=== PATIENT | female | born 1950 | race Caucasian/White ===

== ENCOUNTER 2016-11-09 10:04 | Emergency (ER) | payer OTHER ==
--- NOTE | ~2016-11-09 | CT52 ---
[facility] A Service of [facility] RADIOLOGY TEXT RESULTS PATIENT: DAYANARA REICH LOCATION: [facility] [place] : 54 UNIT #: [id number] AGE: [address]: David Coello MD SEX: F ORDER DR: [id number] [address] [address] [id number] E MR#: [id number] #: [id number] NAME: DAYANARA REICH : 1950 SEX: F STUDY DATE/TIME: 11/09/2016 10:50 UNIT: SED ROOM: STUDY DESCRIPTION: CT Cervical Spine Wo Cont Attending Physician: David Coello M.D. Ordering Physician: David Coello M.D. Primary Care Physician: Juanito Hackett M.D. MEDICAL IMAGING REPORT This report is preliminary unless electronic signature is present. EXAM CT cervical spine without contrast DATE 11/09/2016 HISTORY Posterior headache at the base of the skull for 1 week. No known injury. COPD. Hypertension. COMPARISON None. PROCEDURE 2 mm noncontrast axial images through the cervical spine. Sagittal and coronal reformatted images were obtained. This CT exam was performed with one or more of the following radiation dose reduction techniques: Automatic exposure control, adjustment of mA and/or kV according to patient size, and iterative reconstruction. FINDINGS No acute cervical spine fracture is seen. Craniocervical junction is intact. There is degenerative change of the anterior C1 ring-C2 dens articulation. There is a moderately-advanced diminished disc height at C5-6 with mild anterior and posterior osteophyte formation. There is kgbp-hj-uoaoggco diminished disc height at C6-7 with mild anterior and posterior osteophyte formation. There is 2 mm anterolisthesis C3 upon C4, and approximately 1 mm anterolisthesis of C4 upon C5, nonspecific, but thought to be related to facet arthropathy at those levels. There is mild kyphotic curvature of the cervical spine centered at C4-5. [facility] A Service of [facility] RADIOLOGY TEXT RESULTS PATIENT: DAYANARA REICH LOCATION: [facility] #: [id number] : 54 UNIT #: [id number] AGE: [address]: David Coello MD SEX: F ORDER DR: At C2-3, there is severe right, moderate left facet arthropathy, without significant canal stenosis, and probable mild bilateral neural foraminal narrowing. At C3-4, grade 1 anterolisthesis is noted C3 upon C4 resulting in a pseudo bulge. There is bilateral uncovertebral spurring. Moderate right greater than left facet arthropathy is present. This results in mild canal stenosis. There is moderate to severe right neural foraminal narrowing, moderate left neural foraminal narrowing. At C4-5, there is advanced left facet arthropathy and there is left side uncovertebral spurring. Only borderline canal stenosis. Severe left, glaf-ti-lnowfwkz right neural foraminal narrowing. At C5-6, there is left side uncovertebral spurring with mild posterior disc osteophyte formation, and mild left greater than right facet arthropathy. There is cjdlftjh-jf-bjsjsl left neural foraminal narrowing, mild right neural foramen foraminal narrowing, and borderline canal stenosis. At C6-7, no significant disc bulge, canal, or foraminal stenosis At C7-T1, no significant disc bulge, canal, or foraminal stenosis. Mild left facet arthropathy. Emphysematous changes in lung apices. Paraspinal soft tissues, otherwise, appear within normal limits. IMPRESSION 1. Multilevel degenerative changes in the cervical spine as described in detail in the report, with probable mild canal stenosis at C3-4, borderline canal stenosis at C4-5 and C5-6. Multilevel neural foraminal narrowing, thought to be greatest on the right at C2-3, on the left at C4-5, and left greater than right at C5-6. 2. Biapical emphysema. 3. Grade 1 anterolisthesis C3 upon C4 and C4 upon C5, nonspecific, but thought to be related to advanced facet arthropathy at those levels. Dictated by... Adriana Hernandez M.D. THIS IS AN ELECTRONICALLY VERIFIED REPORT Adriana Hernandez M.D. at 11/10/2016 8:46 AM NICOLAS/meenakshi TD: 11/09/2016 13:48 JOB #: [id number] [facility] A Service of [facility] RADIOLOGY TEXT RESULTS PATIENT: DAYANARA REICH LOCATION: SED : 54 UNIT #: [id number] AGE: [address]: David Coello MD SEX: F ORDER DR: MEDICAL IMAGING REPORT Page 1 of 1
--- NOTE | ~2016-11-09 | CT71 ---
[facility] A Service of [facility] RADIOLOGY TEXT RESULTS PATIENT: DAYANARA REICH LOCATION: SED : 54 UNIT #: [id number] AGE: [address]: David Coello MD SEX: F ORDER DR: [id number] [place] [id number] E MR#: [id number] Acc #: [id number] NAME: DAYANARA REICH. : 1950 SEX: F STUDY DATE/TIME: 11/09/2016 11:20 UNIT: SED ROOM: STUDY DESCRIPTION: CT Head Wo Contrast Attending Physician: David Coello M.D. Ordering Physician: David Coello M.D. Primary Care Physician: Juanito Hackett M.D. MEDICAL IMAGING REPORT This report is preliminary unless electronic signature is present. EXAM CT head without contrast DATE 11/09/2016 HISTORY Posterior headache for 1 week, greatest at the base of the skull. No documented injury. Additional history of hypertension and COPD. COMPARISON CT head without contrast 06/07/2015. TECHNIQUE This CT exam was performed with one or more of the following radiation dose reduction techniques: Automatic exposure control, adjustment of mA and/or kV according to patient size, and iterative reconstruction. FINDINGS No acute intracranial hemorrhage, mass lesion, mass effect, or midline shift is seen and there is no CT evidence of acute or evolving infarct. Major paranasal sinuses and mastoid air cells appear clear. Calvarium is within normal limits. IMPRESSION No acute intracranial findings. No significant change compared to 06/07/2015. Dictated by... Adriana Hernandez M.D. [facility] A Service [facility] RADIOLOGY TEXT RESULTS PATIENT: DAYANARA REICH LOCATION: SED : 54 UNIT #: [id number] AGE: [address]: David Coello MD SEX: F ORDER DR: THIS IS AN ELECTRONICALLY VERIFIED REPORT Adriana Hernandez M.D. at 11/10/2016 8:46 AM Sherrie TD: 11/09/2016 13:37 JOB #: [id number] MEDICAL IMAGING REPORT Page 1 of 1
[~2016-11-09 10:04] MED LIST: ALBUTEROL17 G1 IH; ALBUTEROL17 GM INH; ASPIRIN ENTERI325 M1 PO; ASPIRIN81 M2 PO; ASPIRIN81 MG PO; BACTRIM DS TABL1 TA1 PO; BENZONATATE PO; CELEXA20 MG PO; COREG3.125 MG PO; DOCU SOFT100 M1 PO; DOXYCYCLINE HY100 M1 PO; DOXYCYCLINE PO; HYDROCHLOROTHIA25 MG PO; KEFLEX500 M2 PO; LIPITOR20 MG PO; LISINOPRIL10 MG PO; LOPRESSOR PO; LORTAB 2.5/5001 TAB PO; NICOTINE TRANSD21 MG EXT; NITROGLYGERIN0.4 MG SL; NO MEDICATIONS; NORCO1 TAB 10/3 PO; PANTOPRAZOLE SO40 MG PO; PHENERGAN W/CO120 ML PO; PHENERGAN12.5 MG PO; PLAVIX PO; PREDNISONE PO; PROTONIX PO; ROBITUSSIN A-C S5 ML PO; VIBRAMYCIN100 M1 PO; ZANTAC150 M1 PO; [UNRECOGNIZED DRUG - REMARK]
[2016-11-09] MEDS ORDERED: BP PILL (10:18)
[2016-11-09] MEDS ORDERED: BAYER CHEWABLE81 MG PO (10:18)
[2016-11-09] MEDS ORDERED: HEART PILL (10:18)
== END 2016-11-09 13:17 | disposition home or self-care (01) ==
LOC: SED 10:04
DX: R51 Headache (principal); M54.2 Cervicalgia; I10 Essential (primary) hypertension; J44.9 Chronic obstructive pulmonary disease, unspecified
CPT/HCPCS: 70450; 72125; 96372; 99284; J1885